=== PATIENT | male | born 1960 | race Caucasian/White ===

== ENCOUNTER 2016-08-10 18:58 | Emergency (ER) | payer MEDICARE, OTHER | END 2016-08-10 20:52 | disposition home or self-care (01) | LOC: FER 18:58 | DX: M12.58 Traumatic arthropathy, other specified site (principal); S16.1XXA Strain of muscle, fascia and tendon at neck level, initial encounter; Z88.0 Allergy status to penicillin; Z88.8 Allergy status to other drugs, medicaments and biological substances | CPT/HCPCS: J1885; J2270 ==

== ENCOUNTER 2016-09-02 18:28 | Emergency (ER) | payer MEDICARE | END 2016-09-02 19:00 | disposition home or self-care (01) | LOC: FER 18:28 | DX: S80.211A Abrasion, right knee, initial encounter (principal); I10 Essential (primary) hypertension; E11.9 Type 2 diabetes mellitus without complications; J44.9 Chronic obstructive pulmonary disease, unspecified; Z87.442 Personal history of urinary calculi; Z88.0 Allergy status to penicillin; Z88.8 Allergy status to other drugs, medicaments and biological substances; Z79.51 Long term (current) use of inhaled steroids; Z79.82 Long term (current) use of aspirin; Z79.84 Long term (current) use of oral hypoglycemic drugs; Z79.899 Other long term (current) drug therapy; W17.89XA Other fall from one level to another, initial encounter; Y92.009 Unspecified place in unspecified non-institutional (private) residence as the place of occurrence of the external cause | CPT/HCPCS: 99282 ==

== ENCOUNTER 2020-09-19 10:58 | Emergency (ER) | payer MEDICARE, OTHER ==
[~2020-09-19 10:58] MED LIST: ABILIFY2 MG PO; ALDACTONE25 MG PO; ASPIRIN EC81 MG PO; BACLOFEN 10MG T10 MG PO; BREO ELLIPTA 11 EACH INH; BUSPIRONE HCL10 MG PO; CETIRIZINE HCL10 M1 PO; CYMBALTA 30MG C30 MG PO; FLOMAX0.4 MG PO; FLONASE ALLER15.8 ML; GABAPENTIN600 MG PO; GLUCOPHAGE1000 MG PO; HCTZ25 MG PO; INCRUSE ELLI62.5 MCG INH; JANUVIA50 MG PO; LANTUS **100 UNITS/ SC; LIDOCAINE30 G1 TOP; MOBIC7.5 MG PO; NEURONTIN100 MG PO; NEURONTIN300 MG PO; NORCO 5-325 TA1 EACH PO; OXYCODONE-ACET1 EAC1 PO; PERCOCET 5-3251 EACH PO; POTASSIUM CITR10 MEQ PO; PREDNISONE20 MG PO; PRILOSEC20 MG PO; PROAIR HFA8.5 GM INH; SINGULAIR10 MG PO; SPIRIVA RESPIMAT4 G1 INH; TOPROL XL 25MG25 MG PO; TRELEGY ELLIPT1 EACH INH; VENTOLIN HFA IN18 GM INH; VITAMIN B-121000 MC1 PO; VITAMIN D1000 UNI1 PO; VOLTAREN **OUT50 MG PO; ZOCOR10 M1 PO; ZOFRAN8 MG PO; ZYRTEC10 M3 PO; [UNRECOGNIZED DRUG - OTHER] PO
[2020-09-19 11:57] LABS: BASOPHIL 0.9 % (0-2); EOSINOPHIL 1.7 % (0-5); HCT 43.1 % (42.0-52.0); LYMPHOCYTE 18.3 % (15-48); MCH 29.1 pg (25.0-31.0); MCHC 34.8 g/dL (32.0-36.0); MCV 83.5 fL (78.0-100.0); MONOCYTE 12.5 % (0-12); MPV 10.4 fL (6.0-9.5); NEUTROPHIL 64.7 % (41-80); NRBC 0; PLT 149 K/uL (150-400); RBC 5.16 M/uL (4.70-6.00); RDW 13.3 % (11.5-14.0); WBC 5.3 K/uL (4.0-10.5)
[2020-09-19 12:08] LABS: INR 1.01 (0.9-1.2); PROTHROMBIN TIME 12.6 SECONDS (11.4-13.6); PTT 26.9 SECONDS (22.2-34.7)
[2020-09-19 12:31] LABS: ALBUMIN 3.7 g/dL (3.4-5.0); BILIRUBIN - TOTAL 0.5 mg/dL (0.2-1.0); BUN/CREAT RATIO (CALC) 17.2 RATIO; CREATININE 1.16 mg/dL (0.67-1.17); POTASSIUM 3.9 mmol/L (3.5-5.1); TOTAL PROTEIN 7.7 g/dL (6.4-8.2)
[2020-11-05] MEDS ORDERED: LANTUS100 UNIT/1 SC (15:02)
[2020-11-05] MEDS ORDERED: OZEMPIC0.25 MG/0. SC (15:03)
== END 2020-09-19 12:14 | disposition home or self-care (01) ==
LOC: FER 10:58
PROVIDERS: Emergency Medicine
DX: S83.91XA Sprain of unspecified site of right knee, initial encounter (principal); E11.9 Type 2 diabetes mellitus without complications; I10 Essential (primary) hypertension; E78.5 Hyperlipidemia, unspecified; Z86.718 Personal history of other venous thrombosis and embolism; X58.XXXA Exposure to other specified factors, initial encounter; Z79.84 Long term (current) use of oral hypoglycemic drugs; Z79.82 Long term (current) use of aspirin; Z79.899 Other long term (current) drug therapy; Y92.009 Unspecified place in unspecified non-institutional (private) residence as the place of occurrence of the external cause
CPT/HCPCS: 36415; 80053; 85025; 85610; 85730; 93971

== ENCOUNTER 2020-09-29 12:17 | Emergency (ER) | payer MEDICARE, OTHER ==
[2020-09-29 13:09] LABS: BASOPHIL 1.4 % (0-2); EOSINOPHIL 2.5 % (0-5); HCT 42.8 % (42.0-52.0); HGB 14.8 g/dl (13.2-18.0); LYMPHOCYTE 19.3 % (15-48); MCH 28.8 pg (25.0-31.0); MCHC 34.6 g/dL (32.0-36.0); MCV 83.3 fL (78.0-100.0); MONOCYTE 11.9 % (0-12); MPV 10.4 fL (6.0-9.5); NEUTROPHIL 63.7 % (41-80); NRBC 0; PLT 134 K/uL (150-400); RBC 5.14 M/uL (4.70-6.00); RDW 13.5 % (11.5-14.0); WBC 5.1 K/uL (4.0-10.5)
[2020-09-29 13:25] LABS: ALBUMIN 3.6 g/dL (3.4-5.0); BILIRUBIN - TOTAL 0.4 mg/dL (0.2-1.0); BUN/CREAT RATIO (CALC) 21.1 RATIO; CREATININE 1.14 mg/dL (0.67-1.17); GLOBULIN (CALCULATION) 3.8 g/dL; POTASSIUM 4.2 mmol/L (3.5-5.1); TOTAL PROTEIN 7.4 g/dL (6.4-8.2)
[2020-09-29 14:21] LABS: BILIRUBIN NEGATIVE (NEGATIVE); BLOOD NEGATIVE Ery/uL (NEGATIVE); CLARITY CLEAR (CLEAR); COLOR YELLOW (YELLOW); GLUCOSE (U) 3+ mg/dL (NORMAL); LEUKOCYTES NEGATIVE Leu/uL (NEGATIVE); NITRITE NEGATIVE (NEGATIVE); PROTEIN NEGATIVE (NEGATIVE); UROBILINOGEN 0.2 mg/dL (0.2-1.0)
[2020-11-05] MEDS ORDERED: LANTUS100 UNIT/1 SC (15:02)
[2020-11-05] MEDS ORDERED: OZEMPIC0.25 MG/0. SC (15:03)
== END 2020-09-29 15:28 | disposition home or self-care (01) ==
LOC: FER 12:17
PROVIDERS: Emergency Medicine
DX: E11.65 Type 2 diabetes mellitus with hyperglycemia (principal); I10 Essential (primary) hypertension; J44.9 Chronic obstructive pulmonary disease, unspecified; Z88.0 Allergy status to penicillin; Z88.8 Allergy status to other drugs, medicaments and biological substances; Z87.891 Personal history of nicotine dependence; Z79.82 Long term (current) use of aspirin; Z79.84 Long term (current) use of oral hypoglycemic drugs; Z79.899 Other long term (current) drug therapy
CPT/HCPCS: 36415; 80053; 81003; 82009; 85025; 99284; J7030

== ENCOUNTER 2021-05-14 11:12 | Emergency (ER) | payer MEDICARE, OTHER ==
[~2021-05-14 11:12] MED LIST changes: +LANTUS100 UNIT/1 SC; +OZEMPIC0.25 MG/0. SC
[2021-05-14 12:10] LABS: BASOPHIL 0.6 % (0-2); EOSINOPHIL 2.2 % (0-5); HGB 14.4 g/dl (13.2-18.0); MCH 25.9 pg (25.0-31.0); MCV 81.1 fL (78.0-100.0); MONOCYTE 7.8 % (0-12); MPV 10.4 fL (6.0-9.5); NRBC 0; PLT 137 K/uL (150-400); RBC 5.55 M/uL (4.70-6.00); RDW 15.1 % (11.5-14.0); WBC 6.3 K/uL (4.0-10.5)
[2021-05-14 12:13] LABS: INR 1.08 (0.9-1.2); PROTHROMBIN TIME 13.4 SECONDS (11.8-13.4); PTT 29.2 SECONDS (24.4-34.7)
[2021-05-14 12:26] LABS: ALBUMIN 3.8 g/dL (3.4-5.0); BILIRUBIN - TOTAL 0.4 mg/dL (0.2-1.0); BUN/CREAT RATIO (CALC) 15.4 RATIO; CREATININE 1.17 mg/dL (0.67-1.17); GLOBULIN (CALCULATION) 3.4 g/dL; POTASSIUM 4.8 mmol/L (3.5-5.1); TOTAL PROTEIN 7.2 g/dL (6.4-8.2)
[2021-05-14 13:42] LABS: LDH 224 U/L (85-227)
[2021-05-14 13:44] LABS: C-REACTIVE PROTEIN < 0.20 mg/dL (<=0.90)
[2021-05-14] MEDS ORDERED: ARTHRITIS PAIN100 GM TOP (15:58)
== END 2021-05-14 16:35 | disposition home or self-care (01) ==
LOC: FER 11:12
PROVIDERS: Emergency Medicine
DX: R07.89 Other chest pain (principal); I10 Essential (primary) hypertension; E11.9 Type 2 diabetes mellitus without complications; Z88.0 Allergy status to penicillin; Z88.8 Allergy status to other drugs, medicaments and biological substances; Z79.84 Long term (current) use of oral hypoglycemic drugs; Z79.4 Long term (current) use of insulin
CPT/HCPCS: 36415; 71045; 80053; 82728; 83615; 83690; 83880; 84145; 84484; 85025; 85379; 85610; 85730; 86140; J2270; J2405